=== PATIENT | female | born 1935 | race Caucasian/White ===

== ENCOUNTER 2024-08-27 11:11 | Inpatient (IN) | payer MEDICARE ==
[~2024-08-27 11:11] MED LIST: Iopamidol-370 76% 500 ML MDV (1 ML CHARGE) ONE
[2024-08-27] MEDS ORDERED: Cefepime 2 GM VIAL ONE (12:27)
[2024-08-27] MEDS ORDERED: Sodium Chloride 0.9% 100 ML ONE (12:34)
[2024-08-27 12:57] LABS: #Basophils 0.03 10x3/uL (0.0-0.2); %Basophils 0.3 % (0.0-1.0); %Eosinophils 1.4 % (0.0-10.0); %Lymphocytes 16.1 % (21.0-51.0); %Neutrophils 74.8 % (42.0-75.0); Hematocrit 48.3 % (36.0-47.0); Hemoglobin 14.6 g/dL (12.0-16.0); Mean Corpuscular HGB CONC 30.2 g/dL (32.0-36.0); Mean Corpuscular Hemoglobin 27.8 pg (27.0-31.0); Platelet Count 111 10x3/uL (130-400); RBC Distribution Width 21.6 % (11.5-14.5); Red Blood Cell (RBC) Count 5.25 mill/uL (4.20-5.40)
[2024-08-27 13:17] LABS: PTT 34.3 sec (22.9-36.1); Prothrombin Time 22.8 sec (12.0-14.7)
[2024-08-27 13:19] LABS: Actual Bicarbonate (HCO3v) 26.6 mEq/L (22-28); Analyzer IN Cardio ER; Base Excess -1.9 mEq/L (-2.0 to +3.0); Calcium, Ionized (venous) 1.25 mmol/L (1.16-1.32); Chloride (VBG) 105 mmol/L (98-106); Hematocrit-VBG 45 % (36.0-47.0); Hemoglobin (Hb) 15.3 g/dL (11.7-16.1); Sodium 150 mmol/L (133-146); pH (venous) 7.259 (7.32-7.43)
[2024-08-27 13:21] LABS: Anisocytosis SLIGHT = 6-15 cells HPF (0-5); Burr Cells SLIGHT = 2-5 cells HPF (0-1); Elliptocytes SLIGHT = 2-5 cells HPF (0-1); Macrocytosis SLIGHT = 6-15 cells HPF (0-5); Platelet Adequacy Comment Platelets Decreased; Polychromasia SLIGHT = 2-3 cells HPF (0-2); Schistocytes SLIGHT = 2-5 cells HPF (0-1)
[2024-08-27 13:24] LABS: ALT (SGPT) 27 U/L (8-55); AST (SGOT) 22 U/L (5-34); Albumin 3.9 g/dL (3.4-4.8); Alkaline Phosphatase 171 U/L (40-110); Anion Gap 17 mmol/L (10-20); BUN (Urea Nitrogen) 40 mg/dL (9.8-20.1); Bilirubin, Total 1.1 mg/dL (0.2-1.2); Calc. Creatinine Clearance 0 mL/min (70-130); Calcium 10.5 mg/dL (7.8-10.44); Carbon Dioxide 28 mmol/L (23-31); Chloride 106 mmol/L (98-107); Estimated GFR 28; Globulin 4.1 g/dL (2.4-3.5); Glucose 233 mg/dL (83-110); Lipase 18 U/L (8-78); Magnesium 2.1 mg/dL (1.6-2.6); Potassium 3.7 mmol/L (3.5-5.1); Sodium 147 mmol/L (136-145)
[2024-08-27 13:37] LABS: Troponin I 0.049 ng/mL (< 0.028)
[2024-08-27] MEDS ORDERED: Furosemide 40 MG (4 mL) VIAL ONE (14:35)
[2024-08-27 14:55] LABS: Actual Bicarbonate (HCO3a) 22.8 mEq/L (22-28); Analyzer IN Cardio ER; Base Excess (BEa) -0.5 mEq/L (-2.0 to +3.0); CO2 Tension 33.5 mmHg (35.0-45.0); Carboxyhemoglobin (COHb) 0.2 gm% (0.0-3.0); Hematocrit-ABG 38 % (36.0-47.0); Hemoglobin (Hb) 12.8 g/dL (12.0-16.0); O2 Tension (PaO2), arterial 206.9 mmHg (> 60.0); Potassium - ABG Lab 3.49 mmol/L (3.70-5.30); pH, Arterial 7.451 (7.35-7.45)
[2024-08-27 15:00] LABS: Puncture Site Right Radial artery
[2024-08-27 15:01] LABS: ALV-art Gradient 107.725 mmHg (0-20)
[2024-08-27] MEDS ORDERED: Ondansetron ODT 4 MG TAB PO PRN (15:38)
[2024-08-27] MEDS ORDERED: Ondansetron PF 4 MG/2 ML Vial IVP PRN (15:38)
[2024-08-27] MEDS ORDERED: Acetaminophen 325 MG TAB PO PRN (15:38)
[2024-08-27] MEDS ORDERED: Senokot S 8.6-50 MG TAB PO PRN (15:38)
[2024-08-27] MEDS ORDERED: Calcium Carbonate 500 MG ChewTAB PO PRN (15:38)
[2024-08-27] MEDS ORDERED: Metoprolol Tartrate 5 MG (5 mL) VIAL ONE (16:49)
[2024-08-27] MEDS ORDERED: Aspirin Chewable 81 MG TAB ONE (16:56)
[2024-08-27 19:15] LABS: Lactic Acid 2.71 mmol/L (0.5-2.2)
[2024-08-27] MEDS: Digoxin 0.5 MG/2 ML AMP SLOW IVP SCH (19:32)
[2024-08-27 19:52] VITALS: BMI 24.0
[2024-08-27] MEDS ORDERED: Dextrose 5% in Water 1,000 ML IV PRN (19:57)
[2024-08-27] MEDS ORDERED: Dextrose 50% Abboject 50 ML SYRINGE SLOW IVP PRN (19:57)
[2024-08-27] MEDS ORDERED: Glucagon 1 MG/ML KIT IM PRN (19:57)
[2024-08-27] MEDS ORDERED: Insulin Lispro 100 UNIT/ML 10 ML VIAL SC PRN ×2 (19:57)
[2024-08-27] MEDS: Apixaban 2.5 MG TAB PO SCH (21:31)
[2024-08-28 00:11] LABS: Troponin I 0.037 ng/mL (< 0.028)
[2024-08-28] MEDS: Furosemide 40 MG (4 mL) VIAL SLOW IVP SCH (05:41)
[2024-08-28 05:45] LABS: #Basophils 0.04 10x3/uL (0.0-0.2); %Basophils 0.4 % (0.0-1.0); %Lymphocytes 11.1 % (21.0-51.0); %Monocytes 8.4 % (0.0-10.0); %Neutrophils 77.7 % (42.0-75.0); Hematocrit 40.2 % (36.0-47.0); Hemoglobin 12.2 g/dL (12.0-16.0); Mean Corpuscular HGB CONC 30.3 g/dL (32.0-36.0); Mean Corpuscular Hemoglobin 27.8 pg (27.0-31.0); Mean Corpuscular Volume 91.6 fL (78.0-98.0); Platelet Count 109 10x3/uL (130-400); RBC Distribution Width 21.2 % (11.5-14.5); Red Blood Cell (RBC) Count 4.39 mill/uL (4.20-5.40)
[2024-08-28] MEDS: Levothyroxine Sodium 75 MCG TAB PO SCH (05:47)
[2024-08-28 06:05] LABS: Lactic Acid 1.63 mmol/L (0.5-2.2)
[2024-08-28 06:13] LABS: Digoxin 0.64 ng/mL (0.8-2.0)
[2024-08-28 06:35] LABS: Anisocytosis SLIGHT = 6-15 cells HPF (0-5); Platelet Adequacy Comment Platelets Decreased; Polychromasia SLIGHT = 2-3 cells HPF (0-2)
[2024-08-28 06:52] LABS: ALT (SGPT) 19 U/L (8-55); AST (SGOT) 16 U/L (5-34); Albumin 3.1 g/dL (3.4-4.8); Alkaline Phosphatase 129 U/L (40-110); Anion Gap 15 mmol/L (10-20); Bilirubin, Total 0.9 mg/dL (0.2-1.2); Calc. Creatinine Clearance 24 mL/min (70-130); Calcium 9.4 mg/dL (7.8-10.44); Carbon Dioxide 29 mmol/L (23-31); Chloride 113 mmol/L (98-107); Estimated GFR 28; Glucose 129 mg/dL (83-110); Magnesium 1.9 mg/dL (1.6-2.6); Potassium 3.7 mmol/L (3.5-5.1); Protein, Total 6.1 g/dL (5.8-8.1); Sodium 153 mmol/L (136-145)
[2024-08-28 06:56] LABS: BUN (Urea Nitrogen) 37 mg/dL (9.8-20.1)
[2024-08-28] MEDS: Atorvastatin Calcium 40 MG TAB PO SCH (08:09)
[2024-08-28] MEDS: Aspirin 81 mg Enteric Coated Tablet PO SCH (08:09)
[2024-08-29 06:17] LABS: Anion Gap 15 mmol/L (10-20); BUN (Urea Nitrogen) 33 mg/dL (9.8-20.1); Calc. Creatinine Clearance 28 mL/min (70-130); Calcium 9.6 mg/dL (7.8-10.44); Carbon Dioxide 26 mmol/L (23-31); Chloride 114 mmol/L (98-107); Estimated GFR 34; Glucose 95 mg/dL (83-110); Potassium 3.4 mmol/L (3.5-5.1); Sodium 152 mmol/L (136-145)
[2024-08-29 07:28] LABS: #Basophils 0.04 10x3/uL (0.0-0.2); %Basophils 0.4 % (0.0-1.0); %Eosinophils 2.1 % (0.0-10.0); %Lymphocytes 13.6 % (21.0-51.0); %Monocytes 7.7 % (0.0-10.0); %Neutrophils 75.7 % (42.0-75.0); Hematocrit 41.2 % (36.0-47.0); Hemoglobin 12.4 g/dL (12.0-16.0); Mean Corpuscular HGB CONC 30.1 g/dL (32.0-36.0); Mean Corpuscular Hemoglobin 27.4 pg (27.0-31.0); Mean Corpuscular Volume 90.9 fL (78.0-98.0); Platelet Count 108 10x3/uL (130-400); RBC Distribution Width 21.2 % (11.5-14.5); Red Blood Cell (RBC) Count 4.53 mill/uL (4.20-5.40)
[2024-08-29 08:35] VITALS: TEMP 97.5
[2024-08-29] MEDS: Potassium Chloride 20 MEQ TAB PO SCH (09:05)
== END 2024-08-29 15:57 | DRG 291 ==
LOC: ERS 11:11 → SUATTDRO 11:11 → ERHOLD 15:37 → IMCU/EMU 17:52
PROVIDERS: ADMIT Internal Medicine; ATTEND Internal Medicine
PROC: 4A033R1 Measurement of Arterial Saturation, Peripheral, Percutaneous Approach (ICD-10-PCS; principal; 2024-08-27)
DX: I13.0 Hypertensive heart and chronic kidney disease with heart failure and stage 1 through stage 4 chronic kidney disease, or unspecified chronic kidney disease (principal); I50.43 Acute on chronic combined systolic (congestive) and diastolic (congestive) heart failure; J96.01 Acute respiratory failure with hypoxia; E87.0 Hyperosmolality and hypernatremia; N17.9 Acute kidney failure, unspecified; E87.20 Acidosis, unspecified; E87.1 Hypo-osmolality and hyponatremia; N18.30 Chronic kidney disease, stage 3 unspecified; Z66 Do not resuscitate; Z51.5 Encounter for palliative care; E78.5 Hyperlipidemia, unspecified; I48.91 Unspecified atrial fibrillation; E03.9 Hypothyroidism, unspecified; I25.10 Atherosclerotic heart disease of native coronary artery without angina pectoris; E11.22 Type 2 diabetes mellitus with diabetic chronic kidney disease; G30.9 Alzheimer's disease, unspecified; F02.80 Dementia in other diseases classified elsewhere, unspecified severity, without behavioral disturbance, psychotic disturbance, mood disturbance, and anxiety
CPT/HCPCS: 36415; 36416; 36600; 71045; 71275; 80048; 80053; 80162; 82310; 82805; 83605; 83690; 83735; 83880; 84145; 84443; 84484; 85025; 85610; 85730; 87040; 87149; 93005; 94660; 94760; 96374; 96375; J0692; J1160; J1815; J1940; Q9967